=== PATIENT | female | born 1960 | race Caucasian/White ===

== ENCOUNTER 2018-10-09 14:20 | Emergency (ER) | payer BC, MEDICAID, OTHER ==
[2018-10-09 15:04] VITALS: BP 142/70
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
[2018-10-10 12:22] LABS: Hepatitis B Surface Antigen Negative (Negative)
[2018-10-10 12:39] LABS: Hepatitis B Surface Ab Immune (Immune)
[2018-10-10 12:40] LABS: Hepatitis C Antibody Negative (Negative)
[2018-10-10 13:45] LABS: Rapid HIV 1 Nonreactive (Nonreactive)
== END 2018-10-09 16:30 | disposition home or self-care (01) ==
LOC: UCEAST 14:20
DX: S61.452A Open bite of left hand, initial encounter (principal); Y04.1XXA Assault by human bite, initial encounter; Z87.891 Personal history of nicotine dependence
CPT/HCPCS: 36415; 86703; 86706; 86803; 87340; 99202; G0463